=== PATIENT | male | born 1955 | race Caucasian/White ===

== ENCOUNTER 2019-10-24 05:37 | Day surgery (SDC) | payer OTHER ==
[2019-10-17 10:54] LABS: BASOPHILS # (AUTO) 0.1 X10'3 (0-0.2); BASOPHILS % (AUTO) 1.4 % (0-1); EOSINOPHILS # (AUTO) 0.1 X10'3 (0-0.9); EOSINOPHILS % (AUTO) 1.6 % (0-6); LYMPHOCYTES # (AUTO) 1.9 X10'3 (1.1-4.8); LYMPHOCYTES % (AUTO) 23.3 % (21-51); MEAN CORPUSCULAR HEMOGLOBIN 31.9 PG (27.0-31.0); MEAN CORPUSCULAR HGB CONC 33.9 g/dL (33.0-36.5); MEAN CORPUSCULAR VOLUME 94.1 FL (78-98); MEAN PLATELET VOLUME 8.2 FL (7.4-10.4); MONOCYTES # (AUTO) 0.7 X10'3 (0-0.9); MONOCYTES % (AUTO) 9.4 % (2-12); NEUTROPHILS # (AUTO) 5.1 X10'3 (1.8-7.7); NEUTROPHILS % (AUTO) 64.3 % (42-75); PRE OP HEMATOCRIT 46.1 % (42.0-52.0); PRE OP HEMOGLOBIN 15.6 g/dL (14.0-17.9); PRE OP PLATELET COUNT 250 X10'3 (140-440); RED CELL DISTRIBUTION WIDTH 13.2 % (11.5-14.5)
[2019-10-17 11:08] LABS: ALBUMIN 4.6 G/DL (3.4-5.0); ALBUMIN/GLOBULIN RATIO 1.4 (1.1-1.5); ALKALINE PHOSPHATASE 68 IU/L (46-116); BLOOD UREA NITROGEN 13 MG/DL (7-18); BUN/CREATININE RATIO 15.3 (5.4-32.0); CALCIUM 9.6 MG/DL (8.5-10.1); CHLORIDE 103 MMOL/L (99-107); CREATININE 0.85 MG/DL (0.60-1.10); PRE OP ALT 25 U/L (30-65); PRE OP ANION GAP 8 (8-16); PRE OP AST 18 U/L (10-37); PRE OP BILIRUB, TOTAL 0.5 MG/DL (0.0-1.0); PRE OP GLUCOSE 110 MG/DL (70-104); PRE OP POTASSIUM 4.1 MMOL/L (3.4-5.1); PRE OP SODIUM 139 MMOL/L (135-145); TOTAL CARBON DIOXIDE 27.9 MMOL/L (24-32); TOTAL PROTEIN 7.9 G/DL (6.4-8.2); eGFR > 90 ML/MIN
[2019-10-24] VITALS (34 sets, daily range): BP systolic 120–160; BP diastolic 77–95
[~2019-10-24] VITALS: Ht 172.7 cm; Wt 83.9 kg
[~2019-10-24 05:37] MED LIST: LOSA50TA64 PO; PARO40TA4 PO; ceFAZolin 2gm in dextrose, iso 50 ML IV ONE; famotidine 20mg tablet PO ONE; ringers solution, lacted 1,000 ML IV SCH
[2019-10-24] MEDS ORDERED: LIDOcaine 1% (10mg/ml) 2ml vial ONE (06:18)
[2019-10-24] MEDS ORDERED: BUPIVAcaine/PF 2.5 mg/ml (0.25%) 30ml vial ONE (07:03)
[2019-10-24] MEDS ORDERED: LIDOcaine 1% 30ml preserv. free vial ONE (07:03)
[2019-10-24] MEDS ORDERED: midazolam 2 mg/2 ml injection ONE (07:17)
[2019-10-24] MEDS ORDERED: fentaNYL/PF 50MCG/1 ML 2ML syringe ONE ×2 (07:17→08:08)
[2019-10-24] MEDS ORDERED: sevoflurane 250ml liquid IH ONE (07:35)
[2019-10-24] MEDS ORDERED: ringers solution, lacted 1,000 ML IV SCH (07:37)
[2019-10-24] MEDS ORDERED: ondansetron/PF 4mg/2ml inj IV PRN (07:40)
[2019-10-24] MEDS ORDERED: proCHLORperazine 10 MG/2 ml inj IV PRN (07:40)
[2019-10-24] MEDS ORDERED: meperidine/PF 25mg/ml syringe IV PRN ×2 (07:40)
[2019-10-24] MEDS ORDERED: morphine 4 MG/ML inj SYRINge IV PRN (07:40)
[2019-10-24] MEDS ORDERED: ondansetron/PF 4mg/2ml inj ONE (07:49)
[2019-10-24] MEDS ORDERED: propofol inj 20 ML IV ONE (07:49)
[2019-10-24] MEDS ORDERED: LIDOcaine 2% (20mg/ml) 5ml vial ONE (07:49)
[2019-10-24] MEDS ORDERED: dexamethasone sod phosphate 4mg/ml inj. ONE (07:49)
[2019-10-24] MEDS ORDERED: rocuronium 10mg/ml inj IV ONE (07:49)
[2019-10-24] MEDS ORDERED: neostigmine methylsulfate 1 MG/ML 10ml vial ONE (07:49)
[2019-10-24] MEDS ORDERED: glycopyrrolate 0.2mg/ml inj ONE (07:49)
--- NOTE | 2019-10-24 09:15 | NUR ---
RECEIVED FROM OR VIA [facility] ACCOMPANIED BY ANESTHESIOLOGIST DR RODRIGUEZ, REPORT GIVEN. PT DROWSY BUT AROUSES EASILY WITH COMPLAINT OF PAIN AT LEVEL 7. ABD SOFT WITH LG BANDAID DRESSINGS X 3 CDI. VSS, 20 GAUGE PIV L FA PATENT AND RUNNING LR AT 100 ML/HR. PARRY, PPULSES PRESENT, GOOD CAP REFILL.
[2019-10-24] MEDS ORDERED: oxyCODONE/APAP 5-325mg tablet PO PRN (09:25)
[2019-10-24] MEDS: meperidine/PF 25mg/ml syringe IV PRN ×4 (09:27→10:13)
[2019-10-24] MEDS ORDERED: hydrALAZINE 20mg/ml inj. IV ONE (09:28)
[2019-10-24] MEDS ORDERED: labetalol 20mg/4ml (5mg/ml) syringe IV ONE (09:28)
[2019-10-24] MEDS: morphine 2 MG/ML inj. syringe IV PRN ×3 (10:32→14:30)
[2019-10-24] MEDS ORDERED: LIDOcaine 2% 10ml TOPICAL JELLY (Urojet) MM ONE (14:10)
--- NOTE | 2019-10-24 15:05 | NUR ---
PT AWAKE AND ALERT WITH COMPLAINT OF PAIN AT LEVEL 4. ABD SOFT WITH LG BANDAID DRESSINGS X 3 CDI. VSS, 20 GAUGE PIV L FA DC/D CATH TIP INTACT. ABLE TO VOID 200 ML, BLADDER SCAN PERFORMED AT 1330 SHOWING 800 ML RETAINED URINE. F/C INSERTED USING STERILE TECHNIQUE WITH 850 OUT OF CLEAR YELLOW URINE. PT TO BE SENT HOME WITH F/C AND RETURN TO MD OFFICE IN 48 HOURS FOR REMOVAL. F/C CARE INSTRUCTIONS AND DISCHARGE INSTRUCTIONS GIVEN AND PT VERBALIZED UNDERSTANDING. ABLE TO TOLERATE FLUIDS, DRESS SELF, AMBULATE, PARRY, PPULSES PRESENT, GOOD CAP REFILL. TRANSPORTED VIA WHEELCHAIR TO IN PRIVATE VEHICLE TO HOME.
== END 2019-10-24 15:05 | disposition home or self-care (01) ==
LOC: PAS 05:37
PROVIDERS: ATTEND Surgery
DX: K42.0 Umbilical hernia with obstruction, without gangrene (principal); K40.90 Unilateral inguinal hernia, without obstruction or gangrene, not specified as recurrent; I10 Essential (primary) hypertension; F41.9 Anxiety disorder, unspecified; J45.909 Unspecified asthma, uncomplicated; M19.90 Unspecified osteoarthritis, unspecified site; Z79.899 Other long term (current) drug therapy; Z88.5 Allergy status to narcotic agent; Z98.890 Other specified postprocedural states; Z72.89 Other problems related to lifestyle; Z87.442 Personal history of urinary calculi; Z87.891 Personal history of nicotine dependence; Z11.59 Encounter for screening for other viral diseases
CPT/HCPCS: 36415; 49587; 49650; 80053; 82948; 85025; 87635; 93005; C1781; J0360; J1100; J2001; J2175; J2250; J2270; J2405; J2704; J2710; J3010; J3490; J7120; A4215; A4618

== ENCOUNTER 2023-07-27 08:56 | Day surgery (SDC) | payer MEDICARE, OTHER ==
[2023-07-21 15:30] LABS: BASOPHILS # (AUTO) 0.1 X10'3 (0-0.2); BASOPHILS % (AUTO) 1.2 % (0-1); EOSINOPHILS # (AUTO) 0.2 X10'3 (0-0.9); EOSINOPHILS % (AUTO) 2.5 % (0-6); HEMATOCRIT 42.3 % (42.0-52.0); HEMOGLOBIN 14.3 g/dl (14.0-17.9); LYMPHOCYTES # (AUTO) 1.9 X10'3 (1.1-4.8); MEAN CORPUSCULAR HEMOGLOBIN 32.1 PG (27.0-31.0); MEAN CORPUSCULAR HGB CONC 33.9 g/dL (33.0-36.5); MEAN CORPUSCULAR VOLUME 94.6 FL (78-98); MEAN PLATELET VOLUME 8.3 FL (7.4-10.4); MONOCYTES # (AUTO) 0.8 X10'3 (0-0.9); MONOCYTES % (AUTO) 9.3 % (2-12); NEUTROPHILS # (AUTO) 5.9 X10'3 (1.8-7.7); PLATELET COUNT 252 X10'3 (140-440); RED BLOOD COUNT 4.47 X10'6 (4.70-6.10); WHITE BLOOD COUNT 8.9 X10'3 (4.5-11.0)
[2023-07-21 15:43] LABS: ALANINE AMINOTRANSFERASE 22 U/L (12-78); ALBUMIN 4.3 G/DL (3.4-5.0); ALBUMIN/GLOBULIN RATIO 1.5 (1.1-1.5); ALKALINE PHOSPHATASE 62 IU/L (46-116); ANION GAP 4 (8-16); ASPARTATE AMINO TRANSFERASE 13 U/L (10-37); BILIRUBIN,TOTAL 0.5 MG/DL (0.1-1.0); BLOOD UREA NITROGEN 21 MG/DL (7-18); BUN/CREATININE RATIO 23.1 (10.0-20.0); CALCIUM 9.2 MG/DL (8.5-10.1); CHLORIDE 99 MMOL/L (99-107); CREATININE 0.91 MG/DL (0.60-1.10); GLUCOSE 103 MG/DL (70-104); POTASSIUM 3.9 MMOL/L (3.5-5.1); SODIUM 137 MMOL/L (135-145); TOTAL PROTEIN 7.2 G/DL (6.4-8.2); eGFR 83 ML/MIN
[~2023-07-27] VITALS: Ht 175.3 cm; Wt 83.9 kg
[2023-07-27] VITALS (24 sets, daily range): BP systolic 100–148; BP diastolic 52–85; PULSE 69–96; RESP 12–18; TEMP 99; O2SAT 93–98
[~2023-07-27 08:56] MED LIST changes: -ceFAZolin 2gm in dextrose, iso 50 ML IV ONE; -famotidine 20mg tablet PO ONE; -ringers solution, lacted 1,000 ML IV SCH
[2023-07-27] MEDS: ringers solution, lacted 1,000 ML IV SCH (09:34)
[2023-07-27] MEDS: tamsulosin 0.4mg capsule PO ONE (09:39)
[2023-07-27] MEDS: famotidine 20mg tablet PO ONE (09:39)
[2023-07-27] MEDS: cefazolin 2gm/D5W 100mL 100 ML IV ONE (09:39)
[2023-07-27] MEDS ORDERED: LIDOcaine 1% (10mg/ml)w/preservative inj. 20ml MDV ONE (11:29)
[2023-07-27] MEDS ORDERED: BUPIVAcaine 2.5mg/ml inj 50ml vial (contains preservative) ONE (11:29)
[2023-07-27] MEDS ORDERED: sevoflurane 250ml liquid IH ONE (11:40)
[2023-07-27] MEDS ORDERED: MIDAZolam 1 MG/ML 5ML VIAL ONE (11:46)
[2023-07-27] MEDS ORDERED: fentaNYL/PF 50MCG/1 ML 2ML syringe ONE (11:46)
[2023-07-27] MEDS ORDERED: propofol inj 20 ML IV ONE (11:54)
[2023-07-27] MEDS ORDERED: LIDOcaine 2% (20mg/ml) 5ml vial ONE (11:54)
[2023-07-27] MEDS ORDERED: ondansetron/PF 4mg/2ml inj ONE (11:55)
[2023-07-27] MEDS ORDERED: glycopyrrolate 0.2mg/ml inj ONE (11:55)
[2023-07-27] MEDS ORDERED: neostigmine methylsulfate 1 MG/ML 10ml vial ONE (11:55)
[2023-07-27] MEDS ORDERED: labetalol 20mg/4ml (5mg/ml) syringe IV ONE ×2 (12:13→12:24)
[2023-07-27] MEDS ORDERED: hydrALAZINE 20mg/ml inj. IV PRN (12:15)
[2023-07-27] MEDS ORDERED: labetalol 20mg/4ml (5mg/ml) syringe IV PRN (12:15)
[2023-07-27] MEDS ORDERED: morphine 4 MG/ML inj SYRINge IV PRN (12:15)
[2023-07-27] MEDS ORDERED: ringers solution, lacted 1,000 ML IV SCH (12:15)
[2023-07-27] MEDS ORDERED: fentaNYL/PF 50MCG/1 ML 2ML syringe IV PRN (12:15)
[2023-07-27] MEDS ORDERED: morphine 2 MG/ML inj. syringe IV PRN (12:15)
[2023-07-27] MEDS: BUPIVAcaine/PF 2.5 mg/ml (0.25%) 30ml vial IJ ONE (12:22)
[2023-07-27] MEDS ORDERED: hydrALAZINE 20mg/ml inj. IV ONE (12:24)
[2023-07-27] MEDS: fentaNYL/PF 50MCG/1 ML 2ML syringe IV PRN (13:29)
[2023-07-27] MEDS: ondansetron/PF 4mg/2ml inj IV PRN (14:26)
[2023-07-27] MEDS: HYDROcodone/acetaminophen 5mg/325mg tablet PO PRN (16:06)
== END 2023-07-27 16:50 | disposition home or self-care (01) ==
LOC: PAS 08:56
PROVIDERS: ATTEND Surgery
DX: K40.90 Unilateral inguinal hernia, without obstruction or gangrene, not specified as recurrent (principal); I10 Essential (primary) hypertension; F41.9 Anxiety disorder, unspecified; F32.A Depression, unspecified; Z79.899 Other long term (current) drug therapy; Z98.890 Other specified postprocedural states; Z82.49 Family history of ischemic heart disease and other diseases of the circulatory system
CPT/HCPCS: 36415; 49650; 80053; 82948; 85025; 93005; C1781; J0360; J0690; J1100; J2250; J2405; J2704; J2710; J3010; J3490; J7030; J7120; Z7506; Z7508; Z7512; A4215; A4314; A4618